=== PATIENT | male | born 1970 | race Caucasian/White ===

== ENCOUNTER 2020-07-05 16:29 | Outpatient (REF) | payer BC, SELFPAY ==
[2020-07-06 04:09] LABS: HBc Num1 0.12 S/CO (0.00-0.79); HBsAGNum1 0.17 S/CO (0.00-0.99); Hepatitis B Core Antibody Nonreactive (Nonreactive); Hepatitis B Surface Antigen Negative (Negative)
[2020-07-06 04:28] LABS: ~Hepatitis B Surface Antibody NONREACTIVE (Nonreactive); ~Hepatitis C Antibody Nonreactive (Nonreactive)
[2020-07-07 04:03] LABS: HBS Num1 0.75 mIU/mL (0-7.99); ~HepC Num1 0.16 S/CO (0.00-0.79)
[2020-07-07 04:18] LABS: Hepatitis A Antibody IgM 0.27 Index (0-0.79); ~Hepatitis A Antibody IgM Nonreactive (Nonreactive)
== END 2020-07-05 16:30 | disposition home or self-care (01) ==
LOC: HO.LAB 16:29
PROVIDERS: PCP Internal Medicine; Visit Provider Internal Medicine
DX: K76.9 Liver disease, unspecified (principal)
CPT/HCPCS: 86704; 86706; 86709; 86803; 87340

== ENCOUNTER 2020-08-05 07:58 | Outpatient (REF) | payer BC, SELFPAY ==
[2020-08-05 09:24] LABS: Blood Urea Nitrogen 28 mg/dL (9-16); Estimated Glomerular Filt Rate > 60
== END 2020-08-05 07:59 | disposition home or self-care (01) ==
LOC: HO.LAB 07:58
PROVIDERS: PCP Internal Medicine; Visit Provider Internal Medicine
DX: R79.9 Abnormal finding of blood chemistry, unspecified (principal)
CPT/HCPCS: 36415; 82565; 84520

== ENCOUNTER 2020-10-06 11:03 | Outpatient (REF) | payer BC, SELFPAY ==
[2020-10-06 11:54] LABS: Estimated Average Glucose 111 mg/dL; Hemoglobin A1C 131.4358 umol/L; Hemoglobin A1c % 5.5 %
[2020-10-06 12:14] LABS: Alanine Aminotransferase 45 U/L (0-40); Albumin Level 4.6 g/dL (3.5-5.0); Alkaline Phosphatase 120 U/L (39-117); Aspartate Amino Transferase 29 U/L (5-37); Bilirubin Direct < 0.2 mg/dL (0.0-0.5); Bilirubin Total 0.5 mg/dL (0.0-1.0); Cholesterol 234 mg/dL; Glucose Fasting 92 mg/dL (60-99); HDL Cholesterol 41 mg/dL; LDL Cholesterol Calculated 154 mg/dl; Total Protein 7.6 g/dL (6.5-8.0); Triglycerides 195 mg/dL
[2020-10-06 13:25] LABS: Reflex LDLD? No
== END 2020-10-06 11:04 | disposition home or self-care (01) ==
LOC: HO.LNP 11:03
PROVIDERS: Visit Provider Internal Medicine
DX: E78.00 Pure hypercholesterolemia, unspecified (principal); R73.03 Prediabetes
CPT/HCPCS: 80061; 80076; 82947; 83036

== ENCOUNTER 2021-02-15 12:30 | Outpatient (REF) | payer BC, SELFPAY ==
[2021-02-15 14:27] LABS: Potassium 4.8 mmol/L (3.3-5.1)
== END 2021-02-15 12:31 | disposition home or self-care (01) ==
LOC: HO.10HDL 12:30
PROVIDERS: Visit Provider Internal Medicine
DX: E87.5 Hyperkalemia (principal)
CPT/HCPCS: 36415; 84132

== ENCOUNTER 2021-03-08 14:49 | Outpatient (REF) | payer BC, SELFPAY ==
--- NOTE | ~2021-03-08 | MM_ITS ---
EXAMINATION: BONE DENSITOMETRY CLINICAL INDICATION: Screening for osteoporosis. COMPARISON: Baseline BD dated 08/30/2010. TECHNIQUE: Using a [employer] DXA System (software version: 13.1) manufactured by [employer], dual-energy x-ray absorptiometry was performed of the lumbar spine and left hip. The images are of good technical quality. Summary results are attached. FINDINGS: AP SPINE L1-L4 (excluding L3): The data of L1-L4 has been changed to exclude the L3 vertebral body, because degenerative changes at this level and possible loss of height may cause overestimation of lumbar spine density. Current: BMD 0.822 g/cm2, Z-score -3.1, T-score -3.2, osteoporosis, 8.1% decrease from baseline (<5% change is not significant). Baseline: BMD 0.894 g/cm2. LEFT FEMUR, NECK: Current: BMD 0.643 g/cm2, Z-score -2.7, T-score -3.3, osteoporosis. Baseline: BMD 0.661 g/cm2. LEFT FEMUR, TOTAL: Current: BMD 0.793 g/cm2, Z-score -1.8, T-score -2.1, osteopenia, 3.7% increase from baseline (<5% change is not significant). Baseline: BMD 0.765 g/cm2. IDENTIFIED RISK FACTORS: Low calcium intake, history of fracture (adult), anticonvulsants. HISTORY OF FRACTURE: Humerus/shoulder. MEDICATIONS: Calcium supplements or multivitamin, vitamin D. MM/XR DEXA axial skeleton IMPRESSION: 1. DIAGNOSIS: Osteoporosis based on the lowest T-score value of -3.3 in the femoral neck applying World Health Organization criteria. 2. 10-YEAR FRACTURE RISK PREDICTION, FRAX: Major osteoporotic fracture (clinical spine, forearm, hip or shoulder) 16.6%. Hip fracture 7.2%. 3. Treatment Recommendations: NOF guidelines recommend consideration for treatment in postmenopausal women and men age 50 and older presenting with the following: -A hip or vertebral (clinical or morphometric) fracture. -T-score less than or equal to -2.5 at the femoral neck or spine after appropriate evaluation to exclude secondary causes. -Low bone mass at the hip or spine and a 10-year fracture probability by FRAX of greater than or equal to 3% for hip fracture or greater than or equal to 20% for major osteoporotic fracture based on the [place] adapted WHO algorithm. 4. Other Recommendations: All treatment decisions require clinical judgment and consideration of individual patient factors, including patient preferences, comorbidities, previous drug use, risk factors not captured in the FRAX model (e.g. frailty, falls, vitamin D deficiency, increased bone turnover, interval significant decline in bone density) and possible under or overestimation of fracture risk by FRAX. Additional medical evaluation for secondary cause of low bone mineral density may be appropriate. FUTURE SCAN RECOMMENDATION: People with diagnosed cases of osteoporosis or at high risk for fracture should have regular bone mineral density tests. For patients eligible for Medicare, routine testing is allowed once every 2 years. The testing frequency can be increased to one year for patients who have rapidly progressing disease, those who are receiving or discontinuing medical therapy to restore bone mass, or have additional risk factors.
== END 2021-03-08 14:50 | disposition home or self-care (01) ==
LOC: HO.MAMMO 14:49
PROVIDERS: PCP Internal Medicine; Visit Provider Internal Medicine
DX: M81.0 Age-related osteoporosis without current pathological fracture (principal)
CPT/HCPCS: 77080

== ENCOUNTER 2023-01-10 12:07 | Outpatient (REF) | payer BC, SELFPAY ==
[2023-01-10 12:18] LABS: MANUAL DIFF FLAG NO
[2023-01-10 12:26] LABS: Basophils Absolute Auto 0.1 X10*3/uL (0.0-0.2); Basophils Percent Auto 0.7 % (0-2); Eosinophils Absolute Auto 0.2 X10*3/uL (0.0-0.4); Eosinophils Percent Auto 2.6 % (0-4); Hematocrit 50.7 % (42.0-52.0); Hemoglobin 16.3 g/dl (14.0-18.0); Imm Gran Abs Auto 0.05 X10*3/uL (0.00-0.03); Imm Gran Pct Auto 0.7 % (0.0-0.4); Lymphocytes Absolute Auto 2.3 X10*3/uL (1.2-4.9); Mean Corpuscular HGB Conc 32.1 g/dl (31.0-36.0); Mean Corpuscular Hemoglobin 28.4 pg (27.0-33.0); Mean Corpuscular Volume 88.5 fL (80.0-98.0); Mean Platelet Volume 9.8 fL (9.4-12.4); Monocytes Absolute Auto 0.6 X10*3/uL (0.1-1.2); Monocytes Percent Auto 7.3 % (2-11); Neutrophils Absolute Auto 4.5 x10*3/uL (2.0-8.3); Neutrophils Percent Auto 58.7 % (45-73); Platelet Count 410 X10*3/uL (160-400); Red Blood Count 5.73 X10*6/uL (4.60-5.80); Red Cell Distribution Width 13.8 % (11.0-16.0); White Blood Count 7.7 X10*3/uL (4.8-10.8)
[2023-01-10 12:35] LABS: Appearance Urine Clear; Color Urine Yellow; Glucose Urine UA Negative (Negative); Leukocyte Esterase Urine Small (1+) (Negative); Nitrite Urine Positive (Negative); PH 5.5 (5.0-9.0); Specific Gravity - Urine >= 1.030 (1.005-1.025); UMIC TRIGGER UACC YES; Urine Blood Negative (Negative); Urine Ketones Negative (Negative); Urine Protein Negative (Neg-Trace)
[2023-01-10 12:40] LABS: Bacteria Urine 4+ (None Seen); Hyaline Casts Urine 0-2 /LPF (0-2); RBC Urine 0-2 /HPF (0-2); Squamous Epithelial Cell Urine 0-2 /HPF (0-2); UACC Culture Trigger YES
[2023-01-10 12:41] LABS: Estimated Average Glucose 108 mg/dL; Hemoglobin A1c % 5.4 %
[2023-01-10 13:04] LABS: Alanine Aminotransferase 43 U/L (0-40); Albumin Level 4.7 g/dL (3.5-5.0); Alkaline Phosphatase 55 U/L (39-117); Anion Gap 13 (12-20); Aspartate Amino Transferase 28 U/L (5-37); Bilirubin Total 0.6 mg/dL (0.0-1.0); Blood Urea Nitrogen 23 mg/dL (9-16); Calcium 9.9 mg/dL (8.4-10.2); Carbon Dioxide 27 mmol/L (22-29); Chloride 106 mmol/L (96-108); Cholesterol 210 mg/dL; Estimated Glomerular Filt Rate > 60; Glucose Fasting 90 mg/dL (60-99); HDL Cholesterol 37 mg/dL; LDL Cholesterol Calculated 137 mg/dl; Potassium 5.2 mmol/L (3.3-5.1); Sodium 141 mmol/L (135-145); Total Protein 7.6 g/dL (6.5-8.0); Triglycerides 182 mg/dL
[2023-01-10 13:06] LABS: PSA,Total (Free>4and<10) 1.51 ng/mL (0.00-4.00)
[2023-01-10 13:08] LABS: Vitamin D 25-OH Total 19.1 ng/mL (>30)
[2023-01-10 13:11] LABS: Creatinine Urine 171.85 mg/dL; Microalbum/Creatinine Ratio Ur 6.4 ug/mg cr
== END 2023-01-10 12:08 | disposition home or self-care (01) ==
LOC: HO.LNP 12:07
PROVIDERS: Visit Provider Internal Medicine
DX: Z00.00 Encounter for general adult medical examination without abnormal findings (principal); E78.00 Pure hypercholesterolemia, unspecified; E87.5 Hyperkalemia; E55.9 Vitamin D deficiency, unspecified; R73.09 Other abnormal glucose; R82.90 Unspecified abnormal findings in urine; Z20.2 Contact with and (suspected) exposure to infections with a predominantly sexual mode of transmission; Z12.5 Encounter for screening for malignant neoplasm of prostate
CPT/HCPCS: 80053; 80061; 81001; 82043; 82306; 83036; 84153; 85025; 87086; 87088; 87186

== ENCOUNTER 2023-04-03 15:56 | Outpatient (REF) | payer BC, SELFPAY ==
--- NOTE | ~2023-04-03 | US_ITS ---
EXAMINATION: US VENOUS ULTRASOUND WITH DOPPLER LOWER EXTREMITY, RIGHT CLINICAL INFORMATION: Acute deep vein thrombosis. Swelling of calf COMPARISON: None available. TECHNIQUE: Ultrasound of the deep veins is performed from the hip to the calf with compression sonography and color and pulse Doppler assessment. Spectral analysis with color-flow imaging is performed. FINDINGS: There is normal venous compression and respiratory variation and augmented flow. The visualized common femoral vein, superficial femoral vein, profunda femoral vein, popliteal vein, and the trifurcation region shows no evidence of deep venous thrombosis. There is no significant popliteal fossa cyst. If the patient's symptoms persist, followup ultrasound in 5 days 7 days might be of value to exclude proximal propagation from a non-visualized calf vein. US/US venous duplex LE RT IMPRESSION: No DVT demonstrated in the right lower extremity.
== END 2023-04-03 15:57 | disposition home or self-care (01) ==
LOC: HO.US 15:56
PROVIDERS: PCP Internal Medicine; Visit Provider Internal Medicine
DX: I82.411 Acute embolism and thrombosis of right femoral vein (principal)
CPT/HCPCS: 93971

== ENCOUNTER 2023-04-05 06:34 | Emergency (ER) | payer BC, SELFPAY ==
[2023-04-05 07:07] VITALS: BP 128/84; PULSE 86; RESP 18; TEMP 37; O2SAT 92; BMI 29.0
--- NOTE | 2023-04-05 08:11 | ED_ITS ---
HPI - Extremity Problem General Chief complaint: Extremity Problem Stated complaint: Right leg swelling Time Seen by Provider: 04/05/23 07:27 Source: patient Mode of arrival: EMS Limitations: no limitations History of Present Illness HPI Narrative: patient is a 53-year-old male who presents emergency department via EMS for evaluation of right ankle pain and swelling. Reports that 03/20/2023 he sustained a mechanical fall. The following day he began developing pain to the ankle and a couple of days later began having swelling. He states that he was seen at an urgent care facility approximately 5 days after the injury at which point he had an x-ray obtained which revealed no evidence of fracture dislocation to the ankle/ foot. He followed up with his primary care provider last week for persistent symptoms. He states that he had an ultrasound done 04/03/2023 and he reports that there was no evidence of a blood clot. His PCP has referred him to Orthopedics, he has an appointment scheduled for Friday. He continues to have pain and swelling therefore he came to the emergency department for further evaluation. When asked he denies fevers, chills, chest pain, shortness of breath, difficulty breathing, personal history of DVT / PE/ malignancy, calf pain. Related Data Previous Rx's Medication Instructions Recorded naproxen 500 mg tablet 500 mg PO BID PRN pain #20 tabs 04/05/23 Allergies Allergy/AdvReac Type Severity Reaction Status Date / Time No Known Allergies Allergy Verified 04/05/23 07:06 Review of Systems Review of Systems: Yes all other systems are reviewed and are negative PMFSH Past Medical History Attestation statement: The following information was validated with the patient. Source: old records reviewed Social History Social History Alcohol intake: never Smoked in Last 30 Days: No Use of substances other than those prescribed or required for medical reasons: No Advance Directives: No Advance Directives Information Provided: Yes Physical Exam Vital Signs: Vital Signs: Last Vital Signs Temp 98.6 F 04/05/23 07:07 Pulse 86 04/05/23 07:07 Resp 18 04/05/23 07:07 BP 128/84 04/05/23 07:07 Pulse Ox 92 04/05/23 07:07 O2 Del Method Room Air 04/05/23 07:07 BMI result Body Mass Index 29.0 Appearance: Alert.?Oriented to person, place and time. No acute distress.?Normal affect. Eyes: Pupils equal, round and reactive to light.? ENT: Pharynx normal.?? Neck: Normal inspection.? Neck supple.?? CVS: Heart sounds normal. Normal heart rate and rhythm.? Pulses normal.?? Respiratory: No respiratory distress.? Lung sounds clear to auscultation bilaterally?? Abdomen: Soft and non-tender. Normoactive bowel sounds. No pulsatile mass.?? Skin: Skin warm and dry.? Normal skin color.? Normal skin turgor.?? Extremities: Decreased AROM and Localized swelling to the right ankle and mi dfoot with palpable 2+ DP/PT pulse bilaterally. There is no erythema or warmth.? No calf ttp? Neuro: Moves all extremities spontaneously. Sensation intact bilaterally. Ambulates with antalgic gait Medical Decision Making Medical Decision Making MDM Narrative: patient is a 53 old male who presents emergency department for evaluation of traumatic right ankle pain and swelling as per HPI. At the time my examination he is overall well-appearing, he ambulates with an antalgic gait and the use of a cane. The right lower extremity is neurovascularly intact distally. History and physical examination appear most consistent with the sprain, we discussed expectations of healing time which may be up to 6 weeks, and recommended outpatient follow-up with Orthopedics as scheduled. Discussed the possibility of stress fracture, no indication for emergent MRI to be obtained at this time. Patient provided with crutches and an Aircast, advised the use of naproxen and a prescription was sent to the pharmacy. Advised against additional OTC NSAID while using naproxen. Differential Diagnosis Differential Diagnoses: The differential diagnosis associated with the presentation includes ( stress fracture, ankle sprain, less likely DVT, physical examination is not consistent with septic arthritis there is no erythema or warmth, unlikely infectious etiology, not consistent with acute CHF exacerbation) Independent Historian Clinical information obtained from an independent historian. History obtained from or confirmed by: EMS External Record Review External record reviewed: Prior outpatient radiology ( Venous duplex ultrasound 04/03/2023) Tests considered The following testing was considered but not selected: see narrative above for further detail Prescription Management I considered prescription management with: Pain Medication Discharge Plan Discharge Clinical Impression: Ankle sprain Patient Disposition: Home, Self-Care Instructions: Ankle Sprain (ED) Additional Instructions: your evaluated today for persistent pain and swelling to your ankle after an injury that you sustained 2 weeks ago. By your count you have already had x-ray imaging obtained which did not show any evidence of fracture. I have reviewed the ultrasound imaging you had 2 days ago which did not reveal any evidence of a blood clot. This is very reassuring. Your pain and swelling is most likely attributed to a sprain of the ankle. As discussed, ankle sprains can take sometimes up to 6 weeks to fully heal. Please be sure to rest, apply ice for 10-15 minutes 3-4 times daily, consider the use of Carlos bandage for compression in addition to air cast, and crutches to bear weight as tolerated, elevate your leg above the level of your chest. Please follow-up with the orthopedic appointment that you have scheduled on Friday. Have sent a prescription for naproxen to the pharmacy for pain management. do not take additional [id number] anti-inflammatories such as ibuprofen/ Motrin/ Aleve / Advil / aspirin while taking this medication Prescriptions: New naproxen 500 mg tablet 500 mg PO BID PRN (Reason: pain) Qty: 20 0RF
--- NOTE | 2023-04-05 08:20 | PC.NURSE ---
PT IS A/O X 4 NO SOB/CAR NOTED SPEAKS IN FULL SENTENCES. SKIN PINK WARM DRY. R LOWER LEG 2-3+ PITTING EDEMA NOTED. NO OPEN AREAS NOTED. PT C/O 01/27 R HEEL PAIN. +PEDAL PULSE VIA DOPPLER. MLP AT BEDSIDE. PT AWARE OF PLAN OF CARE.
== END 2023-04-05 09:33 | disposition home or self-care (01) ==
PROVIDERS: Emergency Provider Student in an Organized Health Care Education/Training Program; PCP Internal Medicine
DX: S93.401A Sprain of unspecified ligament of right ankle, initial encounter (principal); W19.XXXA Unspecified fall, initial encounter; Y93.9 Activity, unspecified; Y92.9 Unspecified place or not applicable; Y99.9 Unspecified external cause status
CPT/HCPCS: 99283; 99284

== ENCOUNTER 2024-07-21 14:57 | Emergency (ER) | payer BC, SELFPAY ==
[2024-07-21 15:50] VITALS: BP 138/77; PULSE 98; RESP 18; TEMP 37.2; O2SAT 94; BMI 28.2
--- NOTE | 2024-07-21 15:57 | ED_ITS ---
HPI - General Adult General Chief complaint: Ear Problems Stated complaint: R Ear Pain Time Seen by Provider: 07/21/24 15:56 Source: patient, RN notes reviewed and old records reviewed Mode of arrival: ambulatory Limitations: no limitations History of Present Illness ED Provider: Sabrina MARCELO narrative: 54-year-old male presents for evaluation of right ear pain. The patient reports he has had pain for the last year and had decreased hearing in the right ear. He went to urgent care 3 days ago and was diagnosed with acute right otitis media without perforation. He was prescribed Augmentin, Flonase, Zyrtec He has been compliant with the medications or reports his pain is not improving He is not stick anything in his ear. He reports no pain to his left ear Denies any fevers or chills Related Data Previous Rx's ?Medication ?Instructions ?Recorded naproxen 500 mg tablet 500 mg PO BID PRN pain #20 tabs 04/05/23 Allergies Allergy/AdvReac Type Severity Reaction Status Date / Time No Known Allergies Allergy Verified 07/21/24 15:51 Review of Systems Constitutional: Constitutional: Denies body ache(s), Denies chills, Denies fever(s) and Denies frequent falls Eyes: Eyes: Denies exophthalmos and Denies change in vision ENT: Denies ear discharge and Reports otalgia Cardiovascular: Cardiovascular: Denies chest pain Respiratory: Respiratory: Denies cough Neurologic: Denies frequent falls PMFSH Social History Social History Alcohol intake: never Advance Directives: No Advance Directives Information Provided: No Do you have a plan to hurt others: No Plan Physical Exam ED Vital Signs: Vital Signs - 24 hr 07/21/24 15:50 07/21/24 16:06 Temperature 99 F 99 F Pulse Rate 98 98 Respiratory Rate 18 18 Blood Pressure 138/77 138/77 Pulse Oximetry 94 94 Oxygen Delivery Method Room Air Room Air BMI result Body Mass Index 28.2 Const General: healthy appearing, comfortable, no acute distress, alert and awake Nutritional Appearance: well nourished Orientation/consciousness: patient oriented x3 HENMT Other: There was a small amount of cerumen in the right ear canal, but TM is still visualized. There was a larger amount of cerumen in the left ear canal Head: Yes normocephalic and Yes atraumatic Ears: right TM abnormal (Erythematous and TM bulging with middle ear effusion but no perforation) Eyes Eyelids: Yes eyelids normal Conjunctivae: conjunctivae normal Sclerae: sclerae normal Corneas: corneas normal Pupils: Equal, round and reactive pupils present EOM: EOMs intact bilaterally Neck Neck: Yes full ROM Resp Effort & Inspection: normal respiratory effort, able to speak in complete sentences and not labored Skin General skin exam: elasticity normal Neuro General: patient oriented x3 Cranial nerves: Yes Equal, round and reactive pupils present and Yes Bilaterally intact EOM present Cognition (Neuro): normal cognition Extrem Other: Moving all extremities well without any obvious deformities Medical Decision Making Medical Decision Making MDM Narrative: 54-year-old male presents for evaluation of continued right ear pain. He appears to be on appropriate therapy for acute right otitis media, and I do agree with the diagnosis. There is some cerumen in both ear canals. Given that he has an active infection we will defer cerumen disimpaction at this time due to risk of TM perforation. Patient was encouraged to continue his current treatment course and follow-up with ENT Differential Diagnosis Differential Diagnoses: The differential diagnosis associated with the presentation includes Otitis media Otitis externa Cerumen impaction TM perforation Mastoiditis Discharge Plan Discharge Clinical Impression: Otitis media Patient Disposition: Home, Self-Care Instructions: Ear Infection (ED) Additional Instructions: I recommend continuing your current treatment plan with Augmentin, Zyrtec and Flonase. You may try Afrin nasal spray to help with the congestion Use ibuprofen/Tylenol for pain. You may follow-up with Dr. Torres, ENT if your symptoms do not improve or worsen Prescriptions: No Action naproxen 500 mg tablet 500 mg PO BID PRN (Reason: pain) Qty: 20 0RF Referrals: Ronnie Torres [Physician] - (right otitis media) Stand Alone Forms: Work/School Release Interventions: ED Discharge Assessment Last Done: 07/21/24 16:06 Discharge Date/Time: 07/21/24 16:07 Print Language: Lithuanian
[2024-07-21 16:06] VITALS: BP 138/77; PULSE 98; RESP 18; TEMP 37.2; O2SAT 94
== END 2024-07-21 16:07 | disposition home or self-care (01) ==
PROVIDERS: Emergency Provider Emergency Medicine; PCP Registered Nurse
DX: H66.91 Otitis media, unspecified, right ear (principal); H92.01 Otalgia, right ear
CPT/HCPCS: 99282